=== PATIENT | female | born 1990 | race Caucasian/White ===

== ENCOUNTER 2016-06-10 07:20 | Day surgery (SDC) | payer SELFPAY ==
--- NOTE | 2016-06-08 16:03 | HP ---
MARIA ELENA GREER [id number] DATE OF : 1990 HISTORY OF PRESENT ILLNESS: Maria Elena Greer is a 25-year-old female referred from the [facility] with a missed at 12 1/2 weeks gestation, which was confirmed by an ultrasound in [facility] four days prior to this dictation. The hplwt-hi-unnn length was 5.7 and there was no cardiac activity. Measurements are concurrent with a 12 1/2 weeks intrauterine with demise. OB HISTORY: G-4, P-3, 0-0-3. Two caesarian sections and one vaginal after caesarian section. PLASTICS BEN[employer]IC HISTORY: Menarche 12 x 32 x 4. PAST MEDICAL HISTORY: Positive for: 1. Migraines with aura. 2. Kidney stones. 3. She has had gallstones in past pregnancies. PAST SURGICAL HISTORY: Caesarian section x 2. SOCIAL HISTORY: Nonsmoker and nondrinker. FAMILY HISTORY: Negative. PHYSICAL EXAMINATION: GENERAL: A healthy female in no acute distress. HEENT: Normal. BREASTS: Exam was deferred at this time. LUNGS: Clear. HEART: Regular sinus rhythm. No murmurs. ABDOMEN: Benign. PELVIC: External genitalia healthy. Vagina healthy, with minimal brown discharge noted. The cervix was closed. Uterus 12 week size and anteverted. Adnexa negative. IMPRESSION: Missed . PLAN: Misoprostol insertion. At this time also the patient does not want a D&C if the misoprostol is successful. Alternatives included doing a D&C after misoprostol and also just expectant management without misoprostol. The risks of misoprostol were discussed, including hyperstimulation. The risks of D&C were discussed, including infection, perforation and uterine synechiae. All questions were answered. E/trr
[2016-06-10 07:59] VITALS: BMI 23.1
[2016-06-10] MEDS ORDERED: LIDOCAINE 1% (PRES FREE) 5 ML VIAL ID PRN (08:56)
[2016-06-10] MEDS ORDERED: CEFAZOLIN SODIUM 2 GRAM DUPLEX 2 G in Premix (D5W) 50 ml 1 EACH IV PRN (08:56)
[2016-06-10] MEDS ORDERED: MISOPROSTOL 200 MCG TABLET VG ONE (08:58)
[2016-06-10] MEDS ORDERED: DIPHENHYDRAMINE HCL 25 MG CAPSULE PO PRN (08:59)
[2016-06-10] MEDS ORDERED: METOCLOPRAMIDE HCL 10 MG TABLET PO PRN (08:59)
[2016-06-10 09:19] LABS: HEMATOCRIT 37.3 % (37.0-47.0); HEMOGLOBIN 12.4 gm/l (12.0-16.0); MEAN CORPUSCULAR HEMOGLOBIN 29.2 pg (27.0-31.0); MEAN CORPUSCULAR HGB CONC 33.2 g/dl (33.0-37.0); RED CELL DISTRIBUTION WIDTH 11.9 % (11.5-14.5)
[2016-06-10] MEDS ORDERED: IV START KIT ONE (09:43)
[2016-06-10] MEDS ORDERED: SODIUM CHLORIDE 0.9% FLUSH 10 ML ONE (09:43)
[2016-06-10] MEDS ORDERED: PUMP TUBING ONE (09:43)
--- NOTE | 2016-06-10 10:16 | HP ---
MARIA ELENA GREER [id number] DATE OF ADMISSION: June 10, 2016 PREOPERATIVE DIAGNOSIS: demise at 12 weeks gestation. PROCEDURE: Dilatation and curettage. HISTORY OF PRESENT ILLNESS: Patient is a 25-year-old 4, para 3, with estimated delivery date of December 10, 2016. Patient had initiated care with midwifery group. Patient had gone to [facility] with complaints of vaginal bleeding and ultrasound was performed which showed intrauterine with crown-rump length measuring 5.7 cm and consistent with 12 week plus 2 days gestation. There was no cardiac activity noted. Patient subsequently followed up with Dr. Carrillo and was offered dilation and curettage or misoprostol. Patient preferred misoprostol however did not desire to miscarry at home and therefore is admitted for misoprostol as well as dilation and curettaged. PAST OBSTETRICAL HISTORY: Patient has had two prior deliveries. This was followed by a vaginal after in 2013. The patient had desired another trial of labor for this . Patient denies any history of abnormal Pap smears. PAST MEDICAL HISTORY: Patient has a history of: 1. Migraines. 2. Kidney stones. 3. Gallstones. PAST SURGICAL HISTORY: section times two. MEDICATIONS: vitamins. ALLERGIES TO MEDICATIONS: NO KNOWN DRUG ALLERGIES. PHYSICAL EXAM: GENERAL: Patient is in no apparent distress. HEART: Regular rate and rhythm. LUNGS: Clear to auscultation bilaterally. ABDOMEN: Nontender, nondistended. EXTREMITIES: Exam is normal. ASSESSMENT: This is a 25-year-old 4, para 3, at 13 weeks by dates. However, has had an intrauterine demise at 12 weeks of gestation. This has been confirmed by ultrasound. Patient's blood type is O positive. PLAN: I have discussed with the patient the use of misoprostol for induction of spontaneous as well as for cervical ripening. I have discussed that there is high risk for retained products with this mode of induction at this gestational age. I have recommended misoprostol as cervical ripening pretreatment, but that this would be followed by a dilation and curettage. The procedure, indications and risks have been reviewed, and we planned for insertion of 600 mcg of misoprostol followed by dilation and curettage this evening. The plan has been reviewed with patient and her , and they are both agreeable. We will check a CBC prior to the procedure.
[2016-06-10] MEDS: LACTATED RINGERS 1,000 ML IV SCH ×2 (11:16→18:21)
[2016-06-10] MEDS: OXYCODONE/ACETAMINOPHEN 5/325 MG TABLET PO PRN ×2 (17:01→22:46)
[2016-06-11] MEDS: LACTATED RINGERS 1,000 ML IV SCH ×2 (01:53→09:40)
[2016-06-11] MEDS: OXYCODONE/ACETAMINOPHEN 5/325 MG TABLET PO PRN ×2 (01:55→13:25)
[2016-06-11] MEDS ORDERED: PROPOFOL 20 ML IV ONE (07:25)
[2016-06-11] MEDS ORDERED: MIDAZOLAM HCL 1 MG/ML 2ML VIAL ONE (07:25)
[2016-06-11] MEDS ORDERED: FENTANYL 100 MCG/2 ML VIAL ONE (07:25)
[2016-06-11] MEDS ORDERED: LIDOCAINE 2% (PRES FREE) 5 ML VIAL ONE (07:25)
--- NOTE | 2016-06-11 07:49 | PDOC36 ---
Provider Note Subject: SMASH HAND note Note: Pt had started bleeding at 4pm and with passage of clots and tissue at 6pm. Now minimal bleeding. For D&C this AM - procedure again reviewed. Also reviewed the use of misoprostol in pts with previous c/s - in 1st trimester no risk of uterine rupture Also discussed missed - likely etiology is aneuploidy. All questions answered. Plan discharge today after procedure with rx for percocet.
[2016-06-11] MEDS ORDERED: CEFAZOLIN SODIUM 2 GRAM DUPLEX 50 ML IV ONE (08:09)
[2016-06-11] MEDS ORDERED: MISOPROSTOL 200 MCG TABLET ONE (08:46)
--- NOTE | 2016-06-11 08:57 | PCMBPN ---
Brief Post Op Note: Date of Procedure: 06/11/16 Start Time: Preoperative Diagnosis: 1. demise at 12w Postoperative Diagnosis: 1. [Same] Procedure: suction dilation and curettage Surgeon: Carson Gross Anesthesia: general Findings: products of conception Condition: stable Complications: none Estimated Blood Loss: 400 cc Tourniquet Time: [N/A] Specimens: POC Implants: [] Drains: [N/A]
[2016-06-11] MEDS ORDERED: ATROPINE SULFATE 0.4 MG/1 ML VIAL IV PRN (09:04)
[2016-06-11] MEDS ORDERED: PROMETHAZINE HCL 25 MG/ML VIAL IM PRN (09:04)
[2016-06-11] MEDS ORDERED: MEPERIDINE 25 MG/ML SYRINGE IV PRN (09:04)
[2016-06-11] MEDS ORDERED: FENTANYL 100 MCG/2 ML VIAL IV PRN (09:04)
[2016-06-11] MEDS ORDERED: ONDANSETRON 4 MG/2ML 2 ML VIAL IV PRN (09:04)
[2016-06-11] MEDS ORDERED: HYDROMORPHONE HCL 1 MG/ML SYRINGE IV PRN (09:04)
[2016-06-11] MEDS ORDERED: NALOXONE HCL 0.4 MG/ML VIAL IV PRN (09:04)
[2016-06-11] MEDS ORDERED: LACTATED RINGERS 1,000 ML IV SCH (09:15)
--- NOTE | 2016-06-11 11:40 | OP ---
MARIA ELENA GREER [id number] DATE OF OPERATION: June 11, 2016 PREOPERATIVE DIAGNOSIS: demise at 12 weeks. POSTOPERATIVE DIAGNOSIS: demise at 12 weeks. OPERATION PERFORMED: SUCTION DILATION AND CURETTAGE. SURGEON: Carson Gross M.D. ANESTHESIA: General. OPERATIVE FINDINGS: Products of conception. CONDITION: Stable. COMPLICATIONS: None. ESTIMATED BLOOD LOSS: 400 mL. SPECIMENS: Products of conception. OPERATIVE COURSE: Patient was taken to the operating room and placed under general anesthesia. The patient was then prepped and draped in sterile fashion in lithotomy position. Bladder was emptied with a straight catheter. A weighted speculum was then placed and the cervix was grasped with a single tooth tenaculum. Cervix appeared already dilated to approximately 1 cm. Placement of a #12 suction curette was then placed to the fundus and using suction rotating motion, the curette was slowly withdrawn. This did remove what appeared to be and placental tissue. This was repeated several times and then subsequently a sharp curettage was then performed gently. This was followed by a second round of suction curette with a #10 curette to remove all remaining tissue. At this point, there was no more tissue. The uterus was massaged and 600 mcg of misoprostol was then placed per rectum. There was minimal bleeding at this point. Patient was then recovered from anesthesia and taken to the recovery room in stable condition.
[2016-06-11 14:02] VITALS: BP 100/57
--- NOTE | 2016-06-14 10:37 | SURGPATH ---
[facility] [address] [place] [id number] Patient Name: MARIA ELENA GREER MR#: [id number] : 1990 Gender: F Specimen #: [id number] Collected: 06/11/2016 Received: 06/13/2016 Reported: 06/14/2016 Submitting Phys: ESME SANTORO Copy To Phys: [facility] Clinical History / Pre-Operative Diagnosis: Missed spontaneous Specimen Source / Surgical Procedure Performed: Products of conception Interpretation: PRODUCTS OF CONCEPTION: - CHORIONIC VILLI AND TISSUE IDENTIFIED Electronically Signed Out Cirilo Kilpatrick M.D. Gross Description: The specimen is received in formalin labeled with the patient's name and "products of conception". The specimen consists of an 83 g, 8.0 x 8.0 x 2.5 cm aggregate of russell-brown probable placental tissue and blood. There is also tissue with a foot length of 0.75 cm consistent with a gestational age of approximately 11.5 weeks. A-D. sales representative [employer] ANIBAL Caballero Microscopic Description: Sections include decidua, blood, immature chorionic villi and tissues. 1: [id number] O02.1
== END 2016-06-11 14:00 | disposition home or self-care (01) ==
LOC: SDC 07:20 → MS 07:20 → UNDOADMIN 07:20 → SDC 06-11 14:00 → UNDODISIN 06-11 14:00 → EDSTATUS 06-12 11:39
PROVIDERS: ATTEND Obstetrics & Gynecology
PROC: 10D17ZZ Extraction of Products of Conception, Retained, Via Natural or Artificial Opening (ICD-10-PCS; principal; 2016-06-11)
DX: O02.1 Missed abortion (principal); Z3A.12 12 weeks gestation of pregnancy; G43.909 Migraine, unspecified, not intractable, without status migrainosus; Z87.442 Personal history of urinary calculi